=== PATIENT | male | born 1990 | race Caucasian/White ===

== ENCOUNTER 2021-08-09 08:04 | Outpatient (CLI) | payer OTHER ==
--- NOTE | 2021-08-10 12:34 | MRI Report ---
PROCEDURE: Knee LT W/O INDICATIONS: PAIN IN KNEE TECHNIQUE: Noncontrast sagittal PD fast spin echo and T2 fast spin echo with fat saturation, sagittal 3-D gradie nt sequence with fat saturation; coronal T1 spin echo and PD fast spin echo with fat saturation, and axial PD fast spin echo with fat saturation through the knee. COMPARISON: None. FINDINGS: Image quality: Excellent. Menisci: Suspect ramp tear of the peripheral aspect of the posterior horn the medial meniscus. The la teral meniscus demonstrates normal morphology and internal signal. The meniscal root ligaments appea r intact. Cruciate ligaments: The anterior and posterior cruciate ligaments appear intact. Medial structures: The medial collateral ligament appears intact. The semimembranosus tendon insert ions and meniscocapsular junction appear intact. Visualized portions of the pes anserinus tendons ap pear normal. No abnormal bursal fluid. Lateral structures: The lateral collateral ligament, long and short heads of the biceps femoris tend on appear intact. The popliteus tendon appears normal. Iliotibial band appears normal. Anterior structures: The quadriceps and patellar tendons appear intact. Patellar alignment is rosa l. No femoral trochlear dysplasia or ventral trochlear prominence. No edema in the infrapatellar fa t pad. Bones and cartilage: No bone marrow contusions or fractures. . There is cartilage fibrillation and fissuring in the lateral facet of patella. There is a small subchondral cyst in the lateral facet of patella. Joint space: There is normal knee joint effusion. No Lee's cyst. Normal appearing synovial plica e are incidentally noted. IMPRESSION: 1. Suspect ramp tear of the posterior horn of the medial meniscus. 2. 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 3. Small knee joint effusion. Reviewed by: Cole Sparks MD on 08/10/2021 11:32 AM JASIEL Approved by: Cole Sparks MD on 08/10/2021 11:32 AM [facility] Station ID: [id number]
== END 2021-08-09 08:05 | disposition home or self-care (01) ==
LOC: DI 08:04
PROVIDERS: ATTEND Family Medicine
DX: M94.8X6 Other specified disorders of cartilage, lower leg (principal); R93.6 Abnormal findings on diagnostic imaging of limbs; R93.89 Abnormal findings on diagnostic imaging of other specified body structures; M25.462 Effusion, left knee

== ENCOUNTER 2021-10-28 08:00 | Outpatient (CLI) | payer OTHER ==
--- NOTE | 2021-10-28 17:21 | XRAY Report ---
PROCEDURE: Knee 3 View LT INDICATIONS: LEFT KNEE PAIN TECHNIQUE: 3 views of the left knee(s) were acquired. COMPARISON: None. FINDINGS: Bones: No fractures or dislocations. No suspicious bony lesions. Moderate bilateral medial compart mental joint space narrowing Soft tissues: No joint effusion. No suspicious soft tissue calcifications. IMPRESSION: Moderate medial joint space narrowing. No fracture Reviewed by: Jc Rooney MD on 10/28/2021 4:19 PM [facility] Approved by: Jc Rooney MD on 10/28/2021 4:19 PM [facility] Station ID: [id number]
== END 2021-10-28 23:59 | disposition home or self-care (01) ==
LOC: DI.WOS 08:00
PROVIDERS: ATTEND Physician Assistant Surgical
DX: M17.12 Unilateral primary osteoarthritis, left knee (principal)